=== PATIENT | female | born 1970 | race Caucasian/White ===

== ENCOUNTER 2017-01-23 05:16 | Inpatient (IN) ==
[2017-01-23] MEDS ORDERED: ceFAZolin 2,000 MG in PREMIX 1 EACH IV ONE (06:00)
[2017-01-23] MEDS ORDERED: VANCOMYCIN INJ 1,000 MG in SODIUM CHLORIDE 0.9% 250 ML IV ONE (06:00)
[2017-01-23] MEDS ORDERED: VANCOMYCIN 1,000 MG VIAL ONE (06:09)
[2017-01-23] MEDS: LACTATED RINGERS 1,000 ML IV SCH ×4 (06:30→23:53)
--- NOTE | 2017-01-23 06:38 | History and Physical Update ---
History and Physical Update - History and Physical H&P was reviewed, the patient examined and there: are no changes in the patients condition since last H&P was completed.
[2017-01-23] MEDS ORDERED: ROPIVACAINE 0.5% 30 ML VIAL ONE (07:56)
[2017-01-23] MEDS ORDERED: BACITRACIN OINT 0.9 GM PACK TOP ONE (08:05)
[2017-01-23] MEDS ORDERED: TRANEXAMIC ACID 1,000 MG/10 ML VIAL IV ONE (08:08)
[2017-01-23] MEDS ORDERED: MORPHINE 2 MG/1 ML SYRINGE IV PRN ×2 (08:36)
[2017-01-23] MEDS ORDERED: oxyCODONE/ACETAMINOPHEN 5-325 MG TABLET PO PRN ×2 (08:36)
[2017-01-23] MEDS ORDERED: MAGNESIUM HYDROXIDE SUSP 30 ML UDCUP PO PRN (08:36)
[2017-01-23] MEDS ORDERED: diphenhydrAMINE CAP 25 MG CAPSULE PO PRN (08:36)
[2017-01-23] MEDS ORDERED: oxyCODONE IR 5 MG TABLET PO PRN ×2 (08:36)
[2017-01-23] MEDS ORDERED: ONDANSETRON 4 MG/2 ML VIAL IV PRN (08:36)
--- NOTE | 2017-01-23 08:41 | Operative Note ---
Date of procedure: 01/23/17 Procedure: DIAGNOSIS: Left knee primary osteoarthrosis PROCEDURE: Left total knee arthroplasty (cpt #96767) SURGEON: Joseph COMMERCIAL FINANCE ANALYST: Madhu Pitt ANESTHESIA: Spinal with a postoperative adductor canal block PROCEDURE and FINDINGS: After adequate was induced, the patient's knee was prepped and draped in the usual sterile fashion. The limb was exsanguinated with Esmarch. Tourniquet was inflated to 300 mmHg. A median parapatellar approach was made. Femur was cut using an intramedullary guide and a 4 in 1 cutting jig in 5 degrees of valgus. ACL and menisci were excised. Tibia was cut using intramedullary guide. Patella was cut using freehand technique. Components were trialed. Tibial fin was prepared. Components are cemented in place using Palacos cement and modern cementing techniques. Cement was removed. A 1/8 inch Hemovac drain was placed. The knee was well-balanced and full range of motion with central tracking patella. Deep layers closed with 0-0 Vicryl. Superficial layers were closed with 2-0 and 3-0 Vicryl. Skin was approximated with josefina. Bacitracin and a sterile dressing was applied. Patient was transferred to recovery. A postoperative adductor canal block is anticipated. COMPONENTS: The Dirk Persona system was used. 6 CR narrow femur, D natural tibia, 10 mm liner, 32 mm patella TOURNIQUET TIME: 45 minutes Surgeon / Physician: Cheko Ruiz Jr. Discharge Plan - Discharge Medications No Action Lisinopril/Hydrochlorothiazide [Lisinopril-Hctz 10-12.5 mg Tab] 1 each PO DAILY Levothyroxine Tab [Synthroid Tab] 50 mcg PO DAILY Sertraline [Zoloft] 50 mg PO DAILY Naproxen/Esomeprazole Mag [Vimovo 500-20 mg] 1 tablet PO BID Solifenacin [Vesicare] 5 mg PO DAILY Acetamin/Codeine 300-30 Tab [Tylenol/Codeine #3] 1 tablet PO TID PRN PRN Reason: Pain - Follow Up or Referral - Forms/Instructions
[2017-01-23] MEDS ORDERED: PROPOFOL 200 MG/20 ML VIAL IV ONE (09:12)
[2017-01-23] MEDS ORDERED: PHENYLEPHRINE 50 MG/5 ML VIAL ONE (09:12)
[2017-01-23] MEDS ORDERED: SODIUM CHLORIDE 0.9% 100 ML IV ONE (09:12)
[2017-01-23] MEDS ORDERED: MIDAZOLAM 2 MG/2 ML VIAL ONE (09:12)
[2017-01-23] MEDS ORDERED: SODIUM CHLORIDE 0.9% 250 ML IV ONE (09:12)
--- NOTE | 2017-01-23 09:22 | XRay Report ---
XR knee 2V LT Indication: Left knee replacement. Left knee 2 views: Straight leg splint secures a left TKA in anatomic alignment. Surgical drains, skin josefina and soft tissue emphysema overlie the operative site. No periprosthetic fracture shown. Impression: Anatomic alignment. PROCEDURE INTERPRETED AT [facility] DEPARTMENT OF RADIOLOGY Final Report Signed by: Renzo Ba M.D.
[2017-01-23] MEDS ORDERED: INFLUENZA VIRUS VACCINE 0.5 ML SYRINGE IM ONE (10:25)
[2017-01-23] MEDS: LISINOPRIL/HCTZ 10-12.5 MG TABLET PO SCH (11:01)
[2017-01-23] MEDS: DOCUSATE SODIUM 100 MG CAPSULE PO SCH ×2 (11:04→21:47)
[2017-01-23] MEDS: SERTRALINE 50 MG TABLET PO SCH (11:05)
[2017-01-23] MEDS: SOLIFENACIN 5 MG TABLET PO SCH (11:05)
[2017-01-23] MEDS: LEVOTHYROXINE 50 MCG TABLET PO SCH (11:05)
[2017-01-23] MEDS: KETOROLAC 30 MG/1 ML VIAL IV SCH ×3 (11:12→23:48)
--- NOTE | 2017-01-23 11:58 | Pulmonology Consult Note ---
Assessment and Plan (1) Hypertension, essential Status: Acute Assessment and plan: Blood pressure well controlled on current medicines. Current Visit: Yes (2) Morbid obesity with BMI of 45.0-49.9, adult Status: Acute Assessment and plan: We will somewhat complicate physical therapy postop. Current Visit: Yes (3) Status post total knee replacement Status: Acute Assessment and plan: No calf pain. To start physical therapy later today. Had left knee replacement this morning. Current Visit: No Qualifiers: Laterality: right Qualified Code(s): Z96.651 - Presence of right artificial knee joint (4) Hypothyroid Status: Acute Assessment and plan: Continue home dose of Synthroid. Current Visit: Yes History of Present Illness Chief complaint: Postop left total knee replacement History of present illness: Ms. Villafuerte is a 46 year old female who is followed by Dr. Estrada with degenerative arthritis and hypertension. She had a previous right total knee replacement. She had a left total knee replacement this morning. She has a history of hypertension but no history of heart or lung disease. She has hypothyroid. She has never been a smoker. Home Medications Medication Instructions Recorded Confirmed Type Levothyroxine Tab [Synthroid Tab] 50 mcg PO DAILY 12/30/14 01/23/17 History Lisinopril/Hydrochlorothiazide 1 each PO DAILY 12/30/14 01/23/17 History [Lisinopril-Hctz 10-12.5 mg Tab] Naproxen/Esomeprazole Mag [Vimovo 1 tablet PO BID 12/30/14 01/23/17 History 500-20 mg] Sertraline [Zoloft] 50 mg PO DAILY 12/30/14 01/23/17 History Solifenacin [Vesicare] 5 mg PO DAILY 01/13/15 01/23/17 History Acetamin/Codeine 300-30 Tab 1 tablet PO TID PRN 01/19/17 01/23/17 History [Tylenol/Codeine #3] Allergies Allergy/AdvReac Type Severity Reaction Status Date / Time acetaminophen [From [place]] AdvReac Severe Nausea Verified 01/23/17 06:23 celecoxib [From Celebrex] AdvReac Severe Cramping Verified 01/23/17 06:23 of the Muscles hydrocodone [From [place]] AdvReac Severe Nausea Verified 01/23/17 06:23 12 point system: reviewed and no additional remarkable complaints except as stated - Genitourinary Genitourinary: Present: urinary frequency - Musculoskeletal Musculoskeletal: Present: arthralgias Exam (Pulmonay) H&P - Constitutional Vitals: Period Temp Pulse Resp BP Sys/Loaiza Pulse Ox Last 24 Hr 97.3 F-99.8 F 43-60 14-20 91-163/51-96 96-100 Exam: Patient has normal vital signs except for being overweight. Pupils react to light throat is clear. Neck is supple no bruits. Chest is clear equal breath sounds. Heart normal rate and rhythm no murmurs. Abdomen soft nontender no masses. Extremities no clubbing cyanosis or edema. She has a bandage on her left knee brace on her left leg. Calves are nontender. Medical,Surgical,& Family Hx - Medical History Cardio: History of: Hypertension, Cardiovascular Problems (Ankle Swelling) Psychological: History of: Depression Neurology: No history of: Seizures HEENT: History of: Eye Problem (Near Sighted-Glasses), Dental Problems (Dentures /Dental Bridge Upper Front Teeth) Endocrine: History of: Thyroid Disorder (Hypothyroid) Respiratory: No history of: Respiratory Problems (No Flu Vac) Genitourinary: History of: Problems (frequent (URGENCY AND FREQUENCY)) Musculoskeletal: History of: Musculoskeletal Problems (OA) Other: No history of: Anesthesia Reactions - Surgical History HEENT Surgeries: Surgical HX of: Tonsilectomy & Adenoidectomy (1978) Abdominal Surgeries: Surgical HX of: Gastric Bypass Surgery (lap band) Reproductive Surgeries: Surgical HX of;: Dilation and Curettage (1999), Gynecologic Surgery Orthopedic Surgeries: Surgical HX of;: Total Knee Replacement (01/13/15 RT; Lt) - Family History Family History: Reports;: Family Cancer (FATHER BLADDER CANCER), Family Diabetes (MOTHER), Family Heart Disease (MOTHER), Family Hypertension (MOTHER, MATERNAL GRANDMOTHER) - Social History Smoking Status: Never smoker Frequency of Alcohol Use: Rarely Type of Drug Use: None
[2017-01-23] MEDS: ACETAMINOPHEN 500 MG TABLET PO SCH ×3 (13:20→23:48)
--- NOTE | 2017-01-23 14:24 | Orthopedic Progress Note ---
Orthopedics - Subjective Interval history: Ms. Villafuerte is comfortable postop. Dressing is clean, dry and intact. Left lower extremity is neurovascularly unchanged. Plan: Mobilize per protocol. Exam - Constitutional Vitals: Period Temp Pulse Resp BP Sys/Loaiza Pulse Ox Last 24 Hr 97.3 F-99.8 F 43-60 14-20 91-163/51-96 96-100
[2017-01-23] MEDS: ceFAZolin 2,000 MG in PREMIX 1 EACH IV SCH ×2 (14:53→21:48)
--- NOTE | 2017-01-23 15:37 | Anesthesia Post-Op ---
Anesthesia Post OP - Post Ansesthetic Evaluation Patient seen in post op: Yes Resp: within normal limits CV: within normal limits Mental: within normal limits Temp: within normal limits Gdes-An-Mtabeqrhf: within normal limits Nausea and Vomiting: within normal limits Pain: within normal limits
[2017-01-24] MEDS ORDERED: FONDAPARINUX 2.5 MG/0.5 ML SYRINGE SUBCUT SCH (02:38)
[2017-01-24] MEDS: ACETAMINOPHEN 500 MG TABLET PO SCH (05:37)
[2017-01-24] MEDS: KETOROLAC 30 MG/1 ML VIAL IV SCH (05:38)
[2017-01-24] MEDS: LACTATED RINGERS 1,000 ML IV SCH ×2 (05:42→07:12)
[2017-01-24 06:39] LABS: Basophils # 0.1 10*3/uL (0.0-0.2); Basophils % 0.5 % (0.0-0.8); Eosinophils # 0.3 10*3/uL (0.0-0.87); Eosinophils % 2.8 % (0.00-10.9); Hematocrit 37.9 VOL% (35.7-47.0); Hemoglobin 12.2 GM/DL (12.0-16.0); Immature Granulocytes % 0.5 %; Immature Granulocytes Absolute 0.05 #; Lymphocytes # 1.7 10*3/uL (1.4-4.0); Lymphocytes % 18.1 % (21.3-54.2); Mean Corpuscular HGB Conc 32.2 GM/DL (32-36); Mean Corpuscular Hemoglobin 27 PG (27-34); Mean Corpuscular Volume 82.6 FL (87-102); Mean Platelet Volume 10.4 FL (9.6-12.0); Monocytes # 0.8 10*3/uL (0.11-0.8); Monocytes % 8.2 % (1.7-12.7); Neutrophils # 6.7 10*3/uL (1.4-7.4); Neutrophils % 69.9 % (38.7-73.9); Platelet Count 295 T/CUMM (130-400); Red Blood Count 4.59 MC/CUMM (3.8-5.5); Red Cell Distribution Width 14.3 % (9.3-17.3); White Blood Count 9.6 T/CUMM (4-12)
[2017-01-24 07:10] LABS: Osmolality,Calculated 275.7 MOS/KG (273-304); Potassium 3.8 MMOL/L (3.5-5.1)
[2017-01-24 07:33] VITALS: BP 125/76
--- NOTE | 2017-01-24 07:41 | Discharge Summary ---
Hospital Course - Hospital Course Hospital Course: Ms. Villafuerte is comfortable. She has been walking around the room. She would like to be discharged today if possible. She is moving well in the room. Dressing is clean, dry and intact. Left lower extremity neurovascular change. Ms. Villafuerte was admitted after undergoing a left total knee arthroplasty. She received perioperative DVT and antimicrobial prophylaxis. She received physical therapy. She was discharged home in stable condition. Specialty Discharge - Follow Up or Referrals Follow up with: Cheko Ruiz Jr., MD [Physician] - Discharge Plan - Discharge Data Disposition: Disch To Home/Self Care Discharge Diet: advance to your usual diet Hygiene: may shower Weight Bearing at Discharge: weight bear as tolerated - Discharge Medications Continue Lisinopril/Hydrochlorothiazide [Lisinopril-Hctz 10-12.5 mg Tab] 1 each PO DAILY Levothyroxine Tab [Synthroid Tab] 50 mcg PO DAILY Sertraline [Zoloft] 50 mg PO DAILY Naproxen/Esomeprazole Mag [Vimovo 500-20 mg] 1 tablet PO BID Solifenacin [Vesicare] 5 mg PO DAILY Discontinued Acetamin/Codeine 300-30 Tab [Tylenol/Codeine #3] 1 tablet PO TID PRN PRN Reason: Pain - Follow Up or Referral Follow Up: Cheko Ruiz Jr., MD [Physician] - - Forms/Instructions Additional Discharge Instructions: Daily dry dressing changes. Weightbearing as tolerated. Arrange walker and bedside commode for home use. Wear NYDIA hose for 1 month. Follow-up appointment in 10-14 days. Prescription for Percocet 7.5 with 30 tablets was written. Take aspirin 325 mg by mouth for 21 days. Set up outpatient physical therapy 3 times a day for 4 weeks. Exam - Constitutional Vitals: Period Temp Pulse Resp BP Sys/Loaiza Pulse Ox Last 24 Hr 97.3 F-99.8 F 43-76 14-20 91-134/51-88 95-100 Discharge Results Procedures and tests throughout hospitalization: Pending Orders 01/25/17 04:00 Comp Blood Count Auto Diff IN AM 01/26/17 04:00 Comp Blood Count Auto Diff IN AM Labs on day of discharge: Labs from last 24 hours 01/24/17 01/24/17 06:09 06:09 WBC 9.6 RBC 4.59 Hgb 12.2 Hct 37.9 MCV 82.6 L MCH 27 MCHC 32.2 RDW 14.3 Plt Count 295 MPV 10.4 Neut % (Auto) 69.9 Lymph % (Auto) 18.1 L Cache % (Auto) 8.2 Eos % (Auto) 2.8 Baso % (Auto) 0.5 Neut # (Auto) 6.7 Lymph # (Auto) 1.7 Cache # (Auto) 0.8 Eos # (Auto) 0.3 Baso # (Auto) 0.1 Immature Gran % 0.5 Nucleated RBC % 0.0 Immature Gran # 0.05 Nucleated RBCs # 0.00 Immature Plt Fraction 0.0 Sodium 138 Potassium 3.8 Chloride 101 Carbon Dioxide 26 Anion Gap 14.8 BUN 15 Creatinine 0.70 GFR Calculation 143 BUN/Creatinine Ratio 21.00 H Glucose 101 Calculated Osmolality 275.7 Calcium 8.0 L DS: Provider Date of admission: 01/23/17 05:16 Primary care physician: Bertin Hawk MD Attending physician on admission: Cheko Ruiz Jr., Consults: 01/23/17 08:36 Consult to Case Mgmt/Social Srvs [CONS] Routine Reason for Case Mgmt/Social Srvs: Rehab Home Health Equipment Consult Comment: Bedside Commode, CPM, Walker Consult to Occupational Therapy [CONS] Routine Reason for Occupational Therapy: Evaluate and Treat Consult Comment: ADL's Consult to Physical Therapy [CONS] Routine Reason for Physical Therapy: Evaluate and Treat Gait Training Start Therapy: Today 01/23/17 10:03 Consult to Physician [CONS] Routine Comment: Consulting Provider: Kenneth Hylton Consulting Provider Notified: Yes When should Consulting Provider be notified: Now Person Notified: guille echavarria Date Notified: 01/23/17 Time Notified: 10:04 Discharging clinician: Cheko Ruiz Jr., Expected date of discharge: 01/24/17
[2017-01-24] MEDS: LISINOPRIL/HCTZ 10-12.5 MG TABLET PO SCH (08:11)
[2017-01-24] MEDS: SERTRALINE 50 MG TABLET PO SCH (08:11)
[2017-01-24] MEDS: SOLIFENACIN 5 MG TABLET PO SCH (08:11)
[2017-01-24] MEDS: LEVOTHYROXINE 50 MCG TABLET PO SCH (08:11)
[2017-01-24] MEDS: DOCUSATE SODIUM 100 MG CAPSULE PO SCH (08:12)
[2017-01-24] MEDS ORDERED: ACETAMINOPHEN 325 MG TABLET PO PRN (08:37)
--- NOTE | 2017-01-24 08:45 | Pulmonology Progress Note ---
Pulmonary - PN: Subj Interval history: 46-year-old white female post left total knee replacement. She is already up and ambulating. Pain well controlled. Blood pressure well controlled. Ready for discharge. Follow-up with Dr. Bertin Hawk. Exam (Progress Note) - Constitutional Vitals: Period Temp Pulse Resp BP Sys/Loaiza Pulse Ox Last 24 Hr 97.3 F-97.8 F 43-76 14-20 93-134/51-88 95-100 Exam: Patient alert oriented vital signs normal. Pupils react to light. Throat is clear. Neck supple no bruits. Chest clear equal breath sounds. Heart normal rate and rhythm no murmurs. Abdomen soft nontender no masses. Extremities no clubbing cyanosis or edema. Bandage on left knee. Calves nontender. Results - Labs CBC & BMP: 01/24/17 06:09 01/24/17 06:09 Lab Results: I have reviewed the past 24 hour labs Assessment and Plan (1) Hypertension, essential Status: Acute Assessment and plan: Blood pressure well controlled on current medicines. 01/24/2017 blood pressure well controlled. Current Visit: Yes (2) Morbid obesity with BMI of 45.0-49.9, adult Status: Acute Assessment and plan: We will somewhat complicate physical therapy postop. 01/24/2017 long-term weight loss indicated. Current Visit: Yes (3) Status post total knee replacement Status: Acute Assessment and plan: No calf pain. To start physical therapy later today. Had left knee replacement this morning. 01/24/2017 no signs of DVT. Patient ambulating yesterday and today. Ready for discharge. She is well motivated to do physical therapy. Current Visit: No Qualifiers: Laterality: right Qualified Code(s): Z96.651 - Presence of right artificial knee joint (4) Hypothyroid Status: Acute Assessment and plan: Continue home dose of Synthroid. Current Visit: Yes Specialty Discharge - Follow Up or Referrals Follow up with: Cheko Ruiz Jr., MD [Physician] - 02/06/17 12:40 pm
--- NOTE | 2017-01-24 10:17 | Pathology Report from [facility] ---
[facility] – [place] ACCESSION # : [id number] PATIENT NAME : Ban Barry, ORDERING DR : ANITA GIVENS MD CLINICAL HX: LT knee osteoarthritis POST-OP DX: Same SPECIMEN INFO: LT knee bone & tissue GROSS DESCRIPTION: Received in formalin labeled BAN BARRY & LT KNEE is an aggregate of bone, cartilage and adipose tissue measuring 13.5 x 17.5 cm. The articular surfaces are degenerative with multiple areas of subchondral eburnation measuring up to 2.3 cm. Lithographic Press Operator Apprentice sections are submitted in one cassette. DIAGNOSIS FOR JHNONY REY: LEFT KNEE BONE & TISSUE, TOTAL REPLACEMENT: Degenerative changes c/w osteoarthritis. COLLECTED DATE: 01/23/2017 [facility] REPORT DATE: 01/24/2017 ELECTRONICALLY SIGNED BY: Annmarie De Oliveira M.D. 01/24/2017 - 8:39:02 [facility]
== END 2017-01-24 10:00 | disposition home or self-care (01) | DRG 470 ==
LOC: N.SDSINP 05:16 → N.3E 09:09
PROVIDERS: ADMIT Orthopaedic Surgery; ATTEND Orthopaedic Surgery